=== PATIENT | female | born 1995 | race Native Hawaiian/Other Pacific Islander ===

== ENCOUNTER 2020-01-04 21:26 | Emergency (ER) | payer SELFPAY ==
[2020-01-04 23:10] LABS: Basophils # (Auto) 0.1 K/mm3 (0.0-0.1); Eosinophils # (Auto) 0.6 K/mm3 (0.0-0.4); Eosinophils % (Auto) 8.1 % (0.0-4.3); Hematocrit 40.5 % (30.3-42.9); Hemoglobin 13.3 gm/dl (10.1-14.3); Lymphocytes # (Auto) 2.9 K/mm3 (1.2-5.4); Lymphocytes % (Auto) 37.4 % (13.4-35.0); Mean Corpuscular HGB Conc 33 % (30-34); Mean Corpuscular Volume 85 fl (79-97); Monocytes # (Auto) 0.5 K/mm3 (0.0-0.8); Monocytes % (Auto) 7.1 % (0.0-7.3); Platelet Count 296 K/mm3 (140-440); Red Blood Count 4.75 M/mm3 (3.65-5.03); Red Cell Distribution Width 14.3 % (13.2-15.2)
[2020-01-05] MEDS ORDERED: ACETAMINOPHEN 500 MG TAB PO ONE (01:43)
--- NOTE | 2020-01-05 03:41 | Ultrasound Report ---
ULTRASOUND OBSTETRIC INDICATION / CLINICAL INFORMATION: Bleeding, pain. TECHNIQUE: Transabdominal. COMPARISON: None available. FINDINGS: GESTATIONAL SAC: Well-defined oval shape and intrauterine in location. 6 weeks 2 days YOLK SAC: Not identified EMBRYO/FETUS: No significant abnormality. - [place]-Rump - Heart Rate, beats per minute (if present) not identified ADNEXA: No significant abnormality. FREE FLUID: None. ADDITIONAL FINDINGS: None. IMPRESSION: 1. Small gestational sac without definite evidence of a crown-rump or heart motion, recommend c linical correlation Signer Name: Bonifacio Doshi MD Signed: 01/05/2020 3:37 AM Workstation Name: [id number]
--- NOTE | 2020-01-05 04:56 | Emergency Department Report ---
ED Female HPI - General Chief complaint: Vaginal Bleeding Stated complaint: 4WKS PEG,BACK PAIN,SPOTTING Source: patient Mode of arrival: Ambulatory Limitations: No Limitations - History of Present Illness Initial comments: Patient is a A0 24-year-old female who is approximately 4 or 5 weeks gestation and who presents to the ED with complaint of acute onset persi stent pelvic pain with vaginal bleeding for the last 2 days, worse in the last 12 hours. Patient denies vaginal discharge, dysuria, urinary frequency and urgency, fever, chills, nausea, vomiting, diarrhea, low back pain, dizziness, syncope, chest pain or shortness of breath. MD Complaint: vaginal bleeding, pelvic pain -: Sudden, days(s) (2) Severity: moderate Severity scale (0 -10): 5 Quality: cramping, sharp Consistency: intermittent Improves with: none Worsens with: none Are you Now?: Yes Associated Symptoms: denies other symptoms, vaginal bleeding, abdominal pain, hematuria. denies: vaginal discharge, nausea/vomiting, fever/chills, headaches, loss of appetite, dysuria, rash, shortness of breath, syncope, other - Related Data Sexually active: Yes : 3 Para: 2 A: 0 Previous Rx's Medication Instructions Recorded Last Taken Type Acetaminophen [Tylenol] 500 mg PO Q6HR PRN #30 tablet 01/05/20 Unknown Rx Allergies Allergy/AdvReac Type Severity Reaction Status Date / Time No Known Allergies Allergy Verified 07/01/15 13:44 ED Review of Systems ROS: Stated complaint: 4WKS PEG,BACK PAIN,SPOTTING Other details as noted in HPI Constitutional: denies: chills, fever Eyes: denies: eye pain, eye discharge, vision change ENT: denies: ear pain, throat pain Respiratory: denies: cough, shortness of breath, wheezing Cardiovascular: denies: chest pain, palpitations Endocrine: no symptoms reported Gastrointestinal: abdominal pain (Suprapubic pain). denies: nausea, diarrhea Genitourinary: abnormal menses (Vaginal bleeding). denies: urgency, dysuria, discharge Musculoskeletal: denies: back pain, joint swelling, arthralgia Skin: denies: rash, lesions Neurological: denies: headache, weakness, paresthesias Psychiatric: denies: anxiety, depression Hematological/Lymphatic: denies: easy bleeding, easy bruising ED Past Medical Hx - Past Medical History Previous Medical History?: Yes Hx Hypertension: No Hx Congestive Heart Failure: No Hx Diabetes: No Hx Deep Vein Thrombosis: No Hx Renal Disease: No Hx Sickle Cell Disease: No Hx Seizures: No Hx Asthma: Yes Hx COPD: No Hx HIV: No - Surgical History Past Surgical History?: Yes - Social History Smoking Status: Current Some Day Smoker - Medications Home Medications: Home Medications Medication Instructions Recorded Confirmed Last Taken Type Acetaminophen [Tylenol] 500 mg PO Q6HR PRN #30 tablet 01/05/20 Unknown Rx ED Physical Exam - General Limitations: No Limitations General appearance: alert, in no apparent distress - Head Head exam: Present: atraumatic, normocephalic, normal inspection - Eye Eye exam: Present: normal appearance, PERRL, EOMI Pupils: Present: normal accommodation - ENT ENT exam: Present: normal exam, normal orophraynx, mucous membranes moist, TM's normal bilaterally, normal external ear exam - Neck Neck exam: Present: normal inspection, full ROM - Respiratory Respiratory exam: Present: normal lung sounds bilaterally. Absent: respiratory distress, wheezes, rhonchi, accessory muscle use, decreased breath sounds - Cardiovascular Cardiovascular Exam: Present: regular rate, normal rhythm, normal heart sounds. Absent: systolic murmur, diastolic murmur, rubs, gallop - GI/Abdominal GI/Abdominal exam: Present: soft, tenderness (Mild suprapubic tenderness), normal bowel sounds. Absent: guarding, rebound, hyperactive bowel sounds, hypoactive bowel sounds - Bi-manual exam: Present: other (Pelvic exam deferred, patient charged) - Extremities Exam Extremities exam: Present: normal inspection, full ROM, normal capillary refill - Back Exam Back exam: Present: normal inspection, full ROM. Absent: tenderness, CVA tenderness (R), CVA tenderness (L), muscle spasm, paraspinal tenderness - Neurological Exam Neurological exam: Present: alert, oriented X3, CN II-XII intact, normal gait, reflexes normal - Psychiatric Psychiatric exam: Present: normal affect, normal mood - Skin Skin exam: Present: warm, dry, intact, normal color. Absent: rash ED Course Vital Signs 01/04/20 01/04/20 22:04 22:22 Temperature 98.4 F 98.4 F Pulse Rate 71 65 Respiratory 18 18 Rate Blood Pressure 106/54 106/54 O2 Sat by Pulse 98 99 Oximetry ED Medical Decision Making - Lab Data Result diagrams: 01/04/20 22:41 - Radiology Data Radiology results: report reviewed, image reviewed Findings [facility] [address] [place] [address] Ultrasound Report Signed Patient: WESLEY JUNG MR# : [id number] : 1995 Acct:[id number] Age/Sex: 24 / F ADM Date: 01/04/20 Loc: ED Attending Dr: Ordering Physician: BOB MAYS Date of Service: 01/05/20 Procedure(s): US OB <= 14 weeks fetus Accession Number(s): [id number] cc: BOB MAYS ULTRASOUND OBSTETRIC INDICATION / CLINICAL INFORMATION: Bleeding, pain. TECHNIQUE: Transabdominal. COMPARISON: None available. FINDINGS: GESTATIONAL SAC: Well-defined oval shape and intrauterine in location. 6 weeks 2 days YOLK SAC: Not identified EMBRYO/FETUS: No significant abnormality. - [place] - Heart Rate, beats per minute (if present) not identified ADNEXA: No significant abnormality. FREE FLUID: None. ADDITIONAL FINDINGS: None. IMPRESSION: 1. Small gestational sac without definite evidence of a crown-rump or heart motion, recommend clinical correlation Signer Name: Bonifacio Doshi MD Signed: 01/05/2020 3:37 AM Workstation Name: [id number] Transcribed By: YOSSI Dictated By: Bonifacio Doshi MD Electronically Authenticated By: Bonifacio Doshi MD Signed Date/Time: 01/05/20336 DD/ 4 TD/TT: - Medical Decision Making This is a A0 24-year-old female who is approximately 4 weeks gestation and who presented to the ED with acute onset persistent pelvic pain with vaginal bleeding for the last 2 days worse in the last 8 hours. In the ED, patient is alert and oriented x3 and is not in distress. Patient was treated for pain in the ED. The lab test results [place] [address]. The rest of the lab test results are unremarkable. Transvaginal ultrasound showed a small gestational sac without definite evidence of a crown- rump or heart motion, recommend clinical correlation. Patient was advised to maintain a complete pelvic rest and to return to the ED in 2 days for serial hCG quant repeat to ascertain the viability of the , or follow-up with your [employer]LE[employer] SUPERVISOR physician in 2 days for reevaluation. Patient was advised to return to the ED immediately if symptoms get worse. - Differential Diagnosis Threatened miscarriage; Ovarian cyst; Subchorionic bleed; UTI Critical care attestation.: If time is entered above; I have spent that time in minutes in the direct care of this critically ill patient, excluding procedure time. ED Disposition Clinical Impression: Threatened miscarriage Abdominal pain in Qualifiers: Trimester: first trimester Qualified Code(s): O26.891 - Other specified related conditions, first trimester Disposition: TO HOME OR SELFCARE Is pt being admited?: No Does the pt Need Aspirin: No Condition: Stable Instructions: Threatened Miscarriage (ED), Abdominal Pain in (ED) Additional Instructions: Mantenga un descanso plvico completo, tome Tylenol segn sea necesario para el dolor. Sarah un seguimiento con styles mdico obstetra / gineclogo en 2 a 3 patel para la reevaluacin o regrese al servicio de urgencias en 2 patel para que la cantidad de hCG se repita para determinar la viabilidad del embarazo. De lo contrario, regrese al servicio de urgencias de inmediato si los sntomas empeoran. Prescriptions: Acetaminophen [Tylenol] 500 mg PO Q6HR PRN #30 tablet PRN Reason: Pain , Severe (7-10) Referrals: DULCE VALDERRAMA MD [Staff Physician] - 2-3 Days Time of Disposition: 05:00 Print Language: LATVIAN
[2020-01-05 05:18] LABS: Bilirubin,Urine NEG (Negative); Blood,Urine LG (Negative); Color,Urine Yellow (Yellow); Mucus,Urine FEW /HPF; Protein,Urine <15 mg/dL mg/dL (Negative); Urobilinogen,Urine < 2.0 mg/dL (<2.0)
[2020-01-05 05:42] VITALS: BP 118/72
== END 2020-01-05 05:43 | disposition home or self-care (01) ==
LOC: ED 21:26
DX: O20.0 Threatened abortion (principal); O26.891 Other specified pregnancy related conditions, first trimester; R10.9 Unspecified abdominal pain; F17.200 Nicotine dependence, unspecified, uncomplicated; Z79.899 Other long term (current) drug therapy; Z3A.01 Less than 8 weeks gestation of pregnancy
CPT/HCPCS: 36415; 76801; 81001; 84702; 84703; 85025; 86900; 86901

== ENCOUNTER 2021-05-07 16:28 | Inpatient (IN) | payer OTHER ==
[2021-05-07] MEDS ORDERED: miSOPROStol 200 MCG TAB PR PRN (18:03)
[2021-05-07] MEDS ORDERED: CARBOPROST TROMETHAMINE 250 MCG/1 ML INJ IM PRN (18:03)
[2021-05-07] MEDS ORDERED: MINERAL OIL 30 ML ORAL LIQD PO PRN (18:03)
[2021-05-07] MEDS ORDERED: TERBUTALINE 1 MG/1 ML INJ SUB-Q PRN (18:03)
[2021-05-07] MEDS ORDERED: ePHEDrine SULFATE 50 MG/1 ML INJ IV PRN (18:03)
[2021-05-07] MEDS ORDERED: LOPERAMIDE 2 MG CAP PO PRN (18:03)
[2021-05-07] MEDS ORDERED: ACETAMINOPHEN 325 MG TAB PO PRN (18:03)
[2021-05-07] MEDS ORDERED: LIDOCAINE (2%) 20 MG/1 ML VIAL 20 ML MDV INFILTRATI ONE (18:03)
[2021-05-07] MEDS ORDERED: BUTORPHANOL 2 MG/1 ML INJ IV PRN (18:03)
[2021-05-07] MEDS ORDERED: OXYTOCIN 10 UNIT/1 ML INJ IM PRN (18:03)
[2021-05-07] MEDS ORDERED: METHYLERGONOVINE MALEATE 0.2 MG/ML VIAL IM PRN (18:03)
[2021-05-07] MEDS ORDERED: LACTATED RINGERS 1,000 ML IV SCH (18:15)
--- NOTE | 2021-05-07 18:40 | History and Physical Report ---
History of Present Illness Date of examination: 05/07/21 Date of admission: 05/07/21 18:13 Chief complaint: Contractions History of present illness: 25 year old female presents with contractions. LMP 08/01/2020. EDC 05/08/2021. Patient received care at [facility] and partial records are available. Patient denies any complications during this . History of 2 previous vaginal births and one miscarriage. labs are as follows: O+, antibody screen negative, rubella immune, hepatitis B surface antigen negative, RPR nonreactive, HIV negative, hemoglobin electrophoresis AA, gonorrhea negative, chlamydia negative, trichomonas negative, varicella immune, AFP negative, 1 hour sugar test 70, GBS negative. Past History Past Medical History: asthma Past Surgical History: no surgical history HAND LACER History: denies: abnormal PAP smear, chlamydia, gonorrhea, hepatitis B, hepatitis C, herpes, HIV, syphilis, trichomonas Family/Genetic History: other (asthma) Social history: lives with family, full code. denies: smoking (previous smoker), alcohol abuse, IV drug use - Obstetrical History Expected Date of Delivery: 05/08/21 Actual Gestation: 39 Week(s) 6 Day(s) : 4 Para: 2 Hx # Term Pregnancies: 2 Number of Pregnancies: 0 Spontaneous Abortions: 1 Induced : 0 Number of Living Children: 2 Medications and Allergies Allergies Allergy/AdvReac Type Severity Reaction Status Date / Time No Known Allergies Allergy Verified 05/07/21 18:27 Home Medications Medication Instructions Recorded Confirmed Last Taken Type No Known Home Medications [No 05/07/21 05/07/21 Unknown History Reported Home Medications] Active Meds: Active Medications Acetaminophen (Acetaminophen 325 Mg Tab) 650 mg PO Q4H PRN PRN Reason: Pain, Mild (1-3) Butorphanol Tartrate (Butorphanol 2 Mg/1 Ml Inj) 1 mg IV Q2H PRN PRN Reason: Pain, Moderate(4-6) LABOR PAIN Carboprost Tromethamine (Carboprost Tromethamine 250 Mcg/1 Ml Inj) 250 mcg IM ONCE PRN PRN Reason: Uterine Bleeding Ephedrine Sulfate (Ephedrine Sulfate 50 Mg/1 Ml Inj) 10 mg IV Q2M PRN PRN Reason: Hypotension Fentanyl (Fentanyl 100 Mcg/2 Ml Inj) 100 mcg IV Q2H PRN PRN Reason: Pain,Severe (7-10) LABOR PAIN Lactated Ringer's (Lactated Ringers) 1,000 mls @ 125 mls/hr IV DIRECT BECCA Oxytocin/Sodium Chloride (Pitocin/Ns 30 Unit/500ml) 30 units in 500 mls @ 40 mls/hr IV TITR BECCA; Protocol Loperamide HCl (Loperamide 2 Mg Cap) 2 mg PO ONCE PRN PRN Reason: give with Hemabate Methylergonovine Maleate (Methylergonovine Maleate 0.2 Mg/Ml Vial) 0.2 mg IM ONCE PRN PRN Reason: Uterine Bleeding Mineral Oil (Mineral Oil 30 Ml Oral Liqd) 30 ml PO QHS PRN PRN Reason: Constipation Misoprostol (Misoprostol 200 Mcg Tab) 800 mcg DE ONCE PRN PRN Reason: Uterine Bleeding Oxytocin (Oxytocin 10 Unit/1 Ml Inj) 10 unit IM ONCE PRN PRN Reason: Uterine Bleeding Terbutaline Sulfate (Terbutaline 1 Mg/1 Ml Inj) 0.25 mg SUB-Q ONCE PRN PRN Reason: Hyperstimulation/Hypertonicity Review of Systems All systems: negative (contractions) - Vital Signs Vital signs: Vital Signs Pulse BP Pulse Ox 74 115/67 99 05/07/21 16:50 05/07/21 16:50 05/07/21 16:50 Temp Pulse Resp BP Pulse Ox 97.9 F 56 L 18 114/77 100 05/07/21 18:27 05/07/21 18:27 05/07/21 18:27 05/07/21 18:27 05/07/21 18:15 - Physical Exam Abdomen: Positive: normal appearance, soft. Negative: distention, tenderness, guarding, rigidity Genitourinary (Female): Positive: normal external genitalia, normal perenium. Negative: perineal/vulvar lesions Vagina: Positive: normal moisture Uterus: Positive: enlarged. Negative: tender Extremities: Positive: normal. Negative: tenderness, edema - Obstetrical FHR: category 1 Uterine Contraction Monitor Mode: External Cervical Dilatation: 5.5 Cervical Effacement Percentage: 80 station: -1 Uterine Contraction Pattern: Regular Uterine Contraction Intensity: Moderate Results Result Diagrams: 05/07/21 18:35 All other labs normal. Assessment and Plan A: at 39 weeks, 6 days gestation. Active labor. GBS negative. P: Admit. EFM. Anticipate .
[2021-05-07 18:51] LABS: Hematocrit 33.7 % (30.3-42.9); Hemoglobin 11.3 gm/dl (10.1-14.3); Mean Corpuscular HGB Conc 34 % (30-34); Mean Corpuscular Volume 83 fl (79-97); Platelet Count 261 K/mm3 (140-440); Red Blood Count 4.08 M/mm3 (3.65-5.03); Red Cell Distribution Width 14.7 % (13.2-15.2)
[2021-05-07] MEDS ORDERED: OXYTOCIN DRIP 30 UNITS/500 ML BAG IV SCH (19:00)
[2021-05-07] MEDS: fentaNYL 100 MCG/2 ML INJ IV PRN ×2 (20:55→22:53)
--- NOTE | 2021-05-07 22:57 | Event Note ---
Date: 05/07/21 SVE /-1.
[2021-05-08] MEDS ORDERED: ONDANSETRON 4 MG/2 ML INJ IV PRN (02:48)
[2021-05-08] MEDS ORDERED: WITCH HAZEL/ GLYCERIN PAD TP PRN (02:48)
[2021-05-08] MEDS ORDERED: MAGNESIUM HYDROXIDE (MOM) ORAL LIQD UDC PO PRN (02:48)
[2021-05-08] MEDS ORDERED: LANOLIN/ZINC/DIMETHICONE (LANSINOH) 7 GM TP PRN (02:48)
[2021-05-08] MEDS ORDERED: ACETAMINOPHEN 325 MG TAB PO PRN (02:48)
--- NOTE | 2021-05-08 03:04 | Procedure Note ---
OB Delivery Note - Delivery Date of Delivery: 05/08/21 Surgeon: TRISTAN RAJPUT Estimated blood loss: 300cc - Vaginal Delivery presentation: vertex Delivery position: OP Intrapartum events: other(please specify) (Variable FHR decelerations) Delivery induction: none Delivery augmentation: rupture of membranes Delivery monitor: external FHT, external uterine Route of delivery: Delivery placenta: spontaneous Delivery cord: 3 umbilical vessels Episiotomy: none Delivery laceration: none Delivery repair: vicryl Anesthesia: none Delivery comments: Spontaneous vaginal delivery at 01:48 of liveborn female weighing 7 lb. 8 oz. over intact perineum with apgars of 8/9. was atraumatic. Baby was placed skin to skin with mom immediately after delivery. Spontaneous cry and respirations. 3 vessel cord double clamped and cut; baby taken to radiant warmer for further suctioning. Spontaneous delivery of intact placenta and membranes by cain mechanism. EBL 300 cc. Pitocin to IV fluids after delivery of placenta. Fundus firm and midline. No lacerations noted. Vaginal sweep negative. Sponge co unt correct. Mother and baby stable.
[2021-05-08] MEDS: HYDROcodone/ACETAMINOPHEN 5-325 MG TAB PO PRN ×3 (03:10→21:08)
[2021-05-08] MEDS: IBUPROFEN 600 MG TAB PO SCH ×4 (05:14→23:43)
[2021-05-08] MEDS: DOCUSATE SODIUM 100 MG CAP PO SCH ×2 (09:44→21:11)
[2021-05-08 15:22] LABS: Hematocrit 31.2 % (30.3-42.9); Hemoglobin 9.9 gm/dl (10.1-14.3)
[2021-05-09] MEDS: IBUPROFEN 600 MG TAB PO SCH ×4 (05:21→22:47)
[2021-05-09] MEDS: DOCUSATE SODIUM 100 MG CAP PO SCH ×2 (10:22→22:49)
[2021-05-09] MEDS: FERROUS SULFATE 325 MG TAB PO SCH ×2 (10:22→22:47)
--- NOTE | 2021-05-09 11:26 | Progress Note ---
Assessment and Plan A: day 1 S/P . Anemia. P: Supplement with iron. Anticipate discharge home tomorrow if patient continues to do well. Subjective - Subjective Date of service: 05/09/21 Principal diagnosis: day 1 S/P Patient reports: appetite normal, voiding normally, pain well controlled, flatus, ambulating normally, no dizzy ambulation, no nauseated Advance: doing well Objective - Vital Signs Latest vital signs: Vital Signs Temp Pulse Resp BP BP Pulse Ox 05/09/21 08:33 97.8 F 58 L 17 90/43 96 05/09/21 06:21 18 05/09/21 05:21 18 05/09/21 00:43 18 05/09/21 00:30 98.6 F 78 16 102/72 05/08/21 23:43 18 05/08/21 22:08 18 05/08/21 21:08 18 05/08/21 20:31 98.0 F 71 18 125/66 97 05/08/21 15:10 97.9 F 64 17 106/70 99 Intake and Output 05/08/21 05/09/21 05/09/21 23:59 07:59 15:59 Intake Total 300 560 Output Total 900 Balance -600 560 Intake: Oral 200 Intake, Free Water 300 360 Output: Urine 900 Void 900 Other: Total, Intake Amount 200 Total, Output Amount 900 # Voids Void 2 - Exam Cardiovascular: Present: Regular rate Lungs: Present: Clear to auscultation Abdomen: Present: normal appearance, soft. Absent: distention, tenderness, guarding, rigidity Uterus: Present: normal, firm, fundal height below umbilicus. Absent: bogginess, tenderness Extremities: Present: normal. Absent: tenderness - Labs Labs: Abnormal lab results 05/08/21 Range/Units 14:51 Hgb 9.9 L (10.1-14.3) gm/dl
[2021-05-10] MEDS: IBUPROFEN 600 MG TAB PO SCH (06:15)
--- NOTE | 2021-05-10 06:42 | Progress Note ---
Assessment and Plan A: day 2 S/P . Anemia. P: Discharge patient home today. Discussed with patient discharge instructions and warning signs. Advised patient to continue taking her vitamins and iron supplements at home. Advised patient to avoid intercourse, lifting, heavy housework. Advised patient to follow up at [facility] in 6 weeks. Patient voiced understanding of instructions. Subjective - Subjective Date of service: 05/10/21 Principal diagnosis: day 2 S/P Patient reports: appetite normal, voiding normally, pain well controlled, flatus, ambulating normally, no dizzy ambulation, no nauseated [place]: doing well Objective - Vital Signs Latest vital signs: Vital Signs Temp Pulse Resp BP BP Pulse Ox 05/10/21 01:12 98.0 F 62 18 112/56 99 05/09/21 17:14 97.7 F 20 104/73 05/09/21 17:11 75 99 05/09/21 08:33 97.8 F 58 L 17 90/43 96 Intake and Output 05/09/21 05/09/21 05/10/21 15:59 23:59 07:59 Intake Total 360 240 Balance 360 240 Intake: Oral 360 240 Other: Total, Intake Amount 120 240 # Voids Void 1 1 - Exam Cardiovascular: Present: Regular rate Lungs: Present: Clear to auscultation Abdomen: Present: normal appearance, soft. Absent: distention, tenderness, guarding, rigidity Uterus: Present: normal, firm, fundal height below umbilicus. Absent: bogginess, tenderness Extremities: Absent: tenderness, edema
--- NOTE | 2021-05-10 06:46 | Discharge Summary ---
Providers - Providers Date of Admission: 05/07/21 18:13 Date of discharge: 05/10/21 Attending physician: ALESHIA SMALLWOOD MD Primary care physician: ALESHIA SMALLWOOD MD Hospitalization Reason for admission: active labor Delivery: Episiotomy: none Laceration: none Other procedures: none complications: none Discharge diagnosis: IUP at term delivered baby: female Pertinent studies: Labs Hospital course: Stable hospital course. Condition at discharge: Good Disposition: DC-01 TO HOME OR SELFCARE - Discharge Diagnoses (1) Anemia Status: Acute Plan - Provider Discharge Summary Activity: routine, no sex for 6 weeks, no heavy lifting 4 weeks, no strenuous exercise Diet: routine Instructions: routine Additional instructions: Continue taking your iron supplements and vitamins at home. Follow up at [facility] office in 6 weeks. Call your doctor immediately for: * Fever > 100.5 * Heavy vaginal bleeding ( >1 pad per hour) * Severe persistent headache * Shortness of breath * Reddened, hot, painful area to leg or breast - Follow up plan Follow up: ALESHIA SMALLWOOD MD [Primary Care Provider] - 6 Weeks
[2021-05-10 11:39] VITALS: BP 124/71
== END 2021-05-10 12:25 | disposition home or self-care (01) | DRG 775 ==
LOC: TRG 16:28 → APU 16:30 → TRG 18:12 → APU 18:13 → LD 18:14 → OB 05-08 04:05
PROVIDERS: ADMIT Obstetrics & Gynecology; ATTEND Obstetrics & Gynecology
PROC: 10E0XZZ Delivery of Products of Conception, External Approach (ICD-10-PCS; principal; 2021-05-08)
DX: O76 Abnormality in fetal heart rate and rhythm complicating labor and delivery (principal); O99.52 Diseases of the respiratory system complicating childbirth; D64.9 Anemia, unspecified; Z20.822 Contact with and (suspected) exposure to COVID-19; J45.909 Unspecified asthma, uncomplicated; Z3A.39 39 weeks gestation of pregnancy; Z37.0 Single live birth
CPT/HCPCS: 36415; 85014; 85018; 85027; 86592; 86850; 86900; 86901; G0378; J2590; J3010; J7120; U0003

== ENCOUNTER 2021-08-12 14:15 | Emergency (ER) | payer OTHER ==
--- NOTE | 2021-08-12 15:09 | Event Note ---
ED Screening Note Date of service: 08/12/21 Time: 15:05 ED Screening Note: Patient complains of shortness of breath, chest pain, and all over body aches since Monday Denies control This initial assessment/diagnostic orders/clinical plan/treatment(s) is/are subject to change based on patients health status, clinical progression and re- assessment by fellow clinical providers in the ED. Further treatment and workup at subsequent clinical providers discretion. Patient/guardian urged not to elope from the ED as their condition may be serious if not clinically assessed and managed. Initial orders include: Labs Chest x-ray EKG
[2021-08-12 16:08] LABS: Alanine Aminotransferase 41 units/L (7-56); Albumin 4.7 g/dL (3.9-5); Blood Urea Nitrogen 8 mg/dL (7-17); Hemolysis Index 2
[2021-08-12 16:09] LABS: Basophils % (Auto) 0.4 % (0.0-1.8); Eosinophils # (Auto) 0.1 K/mm3 (0.0-0.4); Eosinophils % (Auto) 1.3 % (0.0-4.3); Hematocrit 36.5 % (30.3-42.9); Hemoglobin 11.8 gm/dl (10.1-14.3); Lymphocytes # (Auto) 1.2 K/mm3 (1.2-5.4); Lymphocytes % (Auto) 27.2 % (13.4-35.0); Mean Corpuscular HGB Conc 32 % (30-34); Mean Corpuscular Volume 80 fl (79-97); Monocytes # (Auto) 0.5 K/mm3 (0.0-0.8); Monocytes % (Auto) 10.2 % (0.0-7.3); Platelet Count 232 K/mm3 (140-440); Red Blood Count 4.54 M/mm3 (3.65-5.03); Red Cell Distribution Width 14.4 % (13.2-15.2)
[2021-08-12 16:11] LABS: BUN/Creatinine Ratio 13
[2021-08-12] MEDS ORDERED: SODIUM CHLORIDE 0.9% 1000 ML 1,000 ML IV ONE (17:31)
[2021-08-12] MEDS ORDERED: KETOROLAC 60 MG/2 ML INJ IM ONE (17:31)
--- NOTE | 2021-08-12 17:33 | XRay Report ---
CHEST 1 VIEW 08/12/2021 4:58 PM INDICATION / CLINICAL INFORMATION: chest pain, SOB. COMPARISON: None available. FINDINGS: SUPPORT DEVICES: None. HEART / MEDIASTINUM: No significant abnormality. LUNGS / PLEURA: No significant pulmonary or pleural abnormality. No pneumothorax. ADDITIONAL FINDINGS: No significant additional findings. IMPRESSION: 1. No acute findings. Signer Name: Yeison Rivera MD Signed: 08/12/2021 5:28 PM Workstation Name: [id number]
--- NOTE | 2021-08-12 17:33 | Emergency Department Report ---
ED General Adult HPI - General Chief complaint: Dyspnea/Respdistress Stated complaint: LIGHT HEADED,SOB Time Seen by Provider: 08/12/21 16:45 Source: patient Mode of arrival: Wheelchair Limitations: Language Barrier - History of Present Illness Initial comments: The patient presents to the emergency department with a chief complaint of fever, chills, body aches and sweating that started Monday. Patient states now she has chest pain when taking deep breaths as well as numbness. Patient is not Danish-speaking thus metoprolol was used. Ms. Curtis provided interpretation. -: Gradual Radiation: non-radiation Severity scale (0 -10): 3 Quality: aching Consistency: constant Improves with: none Worsens with: none Associated Symptoms: denies other symptoms Treatments Prior to Arrival: none - Related Data Previous Rx's Medication Instructions Recorded Last Taken Type Ibuprofen [Motrin] 800 mg PO Q8HR PRN #30 tablet 08/12/21 Unknown Rx Allergies Allergy/AdvReac Type Severity Reaction Status Date / Time No Known Allergies Allergy Verified 08/12/21 14:22 ED Review of Systems ROS: Stated complaint: LIGHT HEADED,SOB Other details as noted in HPI Comment: All other systems reviewed and negative Constitutional: chills, fever, malaise Eyes: denies: eye pain, eye discharge, vision change ENT: denies: ear pain, throat pain Respiratory: cough, shortness of breath. denies: wheezing Cardiovascular: denies: chest pain, palpitations Endocrine: no symptoms reported Gastrointestinal: denies: abdominal pain, nausea, diarrhea Genitourinary: denies: urgency, dysuria, discharge Musculoskeletal: denies: back pain, joint swelling, arthralgia Skin: denies: rash, lesions Neurological: denies: headache, weakness, paresthesias Psychiatric: denies: anxiety, depression Hematological/Lymphatic: denies: easy bleeding, easy bruising ED Past Medical Hx - Past Medical History Hx Hypertension: No Hx Congestive Heart Failure: No Hx Diabetes: No Hx Deep Vein Thrombosis: No Hx Renal Disease: No Hx Sickle Cell Disease: No Hx Seizures: No Hx Asthma: Yes (NO ATTCKS IN [facility] LAST 2 YEARS.) Hx COPD: No Hx HIV: No - Social History Smoking Status: Never Smoker - Medications Home Medications: Home Medications Medication Instructions Recorded Confirmed Last Taken Type Ibuprofen [Motrin] 800 mg PO Q8HR PRN #30 tablet 08/12/21 Unknown Rx ED Physical Exam - General Limitations: Language Barrier General appearance: alert, in no apparent distress - Head Head exam: Present: atraumatic, normocephalic - Eye Eye exam: Present: normal appearance, PERRL, EOMI - ENT ENT exam: Present: mucous membranes moist - Neck Neck exam: Present: normal inspection - Respiratory Respiratory exam: Present: normal lung sounds bilaterally. Absent: respiratory distress - Cardiovascular Cardiovascular Exam: Present: normal rhythm, tachycardia. Absent: systolic murmur, diastolic murmur, rubs, gallop - GI/Abdominal GI/Abdominal exam: Present: soft, normal bowel sounds. Absent: distended, tenderness - Extremities Exam Extremities exam: Present: normal inspection - Back Exam Back exam: Present: normal inspection - Neurological Exam Neurological exam: Present: alert, oriented X3, CN II-XII intact. Absent: motor sensory deficit - Psychiatric Psychiatric exam: Present: normal affect, normal mood - Skin Skin exam: Present: warm, dry, intact, normal color. Absent: rash ED Course Vital Signs 08/12/21 08/12/21 08/12/21 14:30 15:37 15:46 Temperature 99.1 F Pulse Rate 69 84 78 Respiratory 24 28 H 10 L Rate Blood Pressure 117/81 113/64 Blood Pressure [Left] O2 Sat by Pulse 95 100 95 Oximetry 08/12/21 08/12/21 08/12/21 16:00 16:16 16:30 Temperature 98.7 F Pulse Rate 85 81 88 Respiratory 14 15 15 Rate Blood Pressure 118/73 118/73 112/72 Blood Pressure 112/72 [Left] O2 Sat by Pulse 98 98 99 Oximetry 08/12/21 08/12/21 08/12/21 16:46 17:00 17:16 Temperature Pulse Rate 87 85 81 Respiratory 16 18 14 Rate Blood Pressure 112/72 113/73 113/73 Blood Pressure [Left] O2 Sat by Pulse 98 99 98 Oximetry 08/12/21 08/12/21 08/12/21 17:30 17:46 18:01 Temperature Pulse Rate 86 87 98 H Respiratory 19 16 17 Rate Blood Pressure 113/73 105/64 Blood Pressure [Left] O2 Sat by Pulse 98 98 99 Oximetry 08/12/21 08/12/21 08/12/21 18:15 18:31 18:45 Temperature Pulse Rate 92 H 82 74 Respiratory 15 17 12 Rate Blood Pressure 105/64 108/62 114/60 Blood Pressure [Left] O2 Sat by Pulse 99 97 97 Oximetry 08/12/21 08/12/21 08/12/21 19:00 19:15 19:31 Temperature Pulse Rate 77 92 H 84 Respiratory 12 18 10 L Rate Blood Pressure 108/62 108/62 108/62 Blood Pressure [Left] O2 Sat by Pulse 98 99 98 Oximetry 08/12/21 08/12/21 08/12/21 19:45 20:01 20:15 Temperature Pulse Rate 79 79 84 Respiratory 14 13 14 Rate Blood Pressure 106/66 106/66 106/66 Blood Pressure [Left] O2 Sat by Pulse 98 98 98 Oximetry 08/12/21 08/12/21 08/12/21 20:31 20:45 21:01 Temperature Pulse Rate 71 68 84 Respiratory 14 12 15 Rate Blood Pressure 106/66 106/66 106/66 Blood Pressure [Left] O2 Sat by Pulse 100 100 100 Oximetry 08/12/21 08/12/21 21:15 21:29 Temperature 99.2 F Pulse Rate 74 Respiratory 12 Rate Blood Pressure 106/66 Blood Pressure [Left] O2 Sat by Pulse 98 Oximetry ED Medical Decision Making - Lab Data Result diagrams: 08/12/21 15:29 08/12/21 15:29 Lab Results 08/12/21 08/12/21 08/12/21 Range/Units 15:29 15:29 15:29 WBC 4.6 (4.5-11.0) K/mm3 RBC 4.54 (3.65-5.03) M/mm3 Hgb 11.8 (10.1-14.3) gm/dl Hct 36.5 (30.3-42.9) % MCV 80 (79-97) fl MCH 26 L (28-32) pg MCHC 32 (30-34) % RDW 14.4 (13.2-15.2) % Plt Count 232 (140-440) K/mm3 Lymph % (Auto) 27.2 (13.4-35.0) % [place]eman % (Auto) 10.2 H (0.0-7.3) % Eos % (Auto) 1.3 (0.0-4.3) % Baso % (Auto) 0.4 (0.0-1.8) % Lymph # (Auto) 1.2 (1.2-5.4) K/mm3 [place]eman # (Auto) 0.5 (0.0-0.8) K/mm3 Eos # (Auto) 0.1 (0.0-0.4) K/mm3 Baso # (Auto) 0.0 (0.0-0.1) K/mm3 Seg Neutrophils % 60.9 (40.0-70.0) % Seg Neutrophils # 2.8 (1.8-7.7) K/mm3 Sodium 138 (137-145) mmol/L Potassium 3.8 (3.6-5.0) mmol/L Chloride 102.4 (98-107) mmol/L Carbon Dioxide 21 L (22-30) mmol/L Anion Gap 18 mmol/L BUN 8 (7-17) mg/dL Creatinine 0.6 (0.6-1.2) mg/dL Estimated GFR > 60 ml/min BUN/Creatinine Ratio 13 % Glucose 93 (65-100) mg/dL Calcium 9.0 (8.4-10.2) mg/dL Total Bilirubin 0.20 (0.1-1.2) mg/dL AST 51 H (5-40) units/L ALT 41 (7-56) units/L Alkaline Phosphatase 60 (35-129) units/L Total Protein 7.9 (6.3-8.2) g/dL Albumin 4.7 (3.9-5) g/dL Albumin/Globulin Ratio 1.5 % HCG, Qual Negative (Negative) Influenza A (Rapid) (Negative) Influenza B (Rapid) (Negative) 08/12/21 Range/Units Unknown WBC (4.5-11.0) K/mm3 RBC (3.65-5.03) M/mm3 Hgb (10.1-14.3) gm/dl Hct (30.3-42.9) % MCV (79-97) fl MCH (28-32) pg MCHC (30-34) % RDW (13.2-15.2) % Plt Count (140-440) K/mm3 Lymph % (Auto) (13.4-35.0) % [place] % (Auto) (0.0-7.3) % Eos % (Auto) (0.0-4.3) % Baso % (Auto) (0.0-1.8) % Lymph # (Auto) (1.2-5.4) K/mm3 [place]eman # (Auto) (0.0-0.8) K/mm3 Eos # (Auto) (0.0-0.4) K/mm3 Baso # (Auto) (0.0-0.1) K/mm3 Seg Neutrophils % (40.0-70.0) % Seg Neutrophils # (1.8-7.7) K/mm3 Sodium (137-145) mmol/L Potassium (3.6-5.0) mmol/L Chloride (98-107) mmol/L Carbon Dioxide (22-30) mmol/L Anion Gap mmol/L BUN (7-17) mg/dL Creatinine (0.6-1.2) mg/dL Estimated GFR ml/min BUN/Creatinine Ratio % Glucose (65-100) mg/dL Calcium (8.4-10.2) mg/dL Total Bilirubin (0.1-1.2) mg/dL AST (5-40) units/L ALT (7-56) units/L Alkaline Phosphatase (35-129) units/L Total Protein (6.3-8.2) g/dL Albumin (3.9-5) g/dL Albumin/Globulin Ratio % HCG, Qual (Negative) Influenza A (Rapid) Negative (Negative) Influenza B (Rapid) Negative (Negative) - Radiology Data Radiology results: report reviewed - Medical Decision Making Discussed results with patient via clay temperer Instructed the patient the importance of getting tested for Covid Critical care attestation.: If time is entered above; I have spent that time in minutes in the direct care of this critically ill patient, excluding procedure time. ED Disposition Clinical Impression: Myalgia, Fever Disposition: 01 HOME / SELF CARE / HOMELESS Is pt being admited?: No Does the pt Need Aspirin: No Condition: Stable Instructions: Fever, Adult Additional Instructions: Return if worse Referrals: PRIMARY CARE, [Primary Care Provider] - 3-5 Days LUCAS JOHNSTON MD [Staff Physician] - 3-5 Days Time of Disposition: 22:22
--- NOTE | 2021-08-12 19:31 | Cat Scan Report ---
CT angio chest INDICATION / CLINICAL INFORMATION: chest pain/tachycardic/sob. TECHNIQUE: Axial CT images were obtained through the chest after injection of IV contrast. 3 plane MIP and/or 3D reconstructions were produced. All CT scans at this location are performed using CT dose reduction f or ALARA by means of automated exposure control. COMPARISON: X-ray chest same day FINDINGS: PULMONARY ARTERIES: No pulmonary emboli. HEART: No significant abnormality. MEDIASTINUM / SEBASTIAN: No significant abnormality. LUNGS: Lungs are clear No pleural effusion. No pneumothorax. ADDITIONAL FINDINGS: None. UPPER ABDOMEN: No acute findings. SKELETAL STRUCTURES: No significant osseous abnormality. IMPRESSION: 1. No CT evidence for pulmonary embolism. 2. No acute findings. Signer Name: Matthew George MD Signed: 08/12/2021 7:26 PM Workstation Name: [id number]
[2021-08-12 20:06] VITALS: BP 106/66
--- NOTE | 2021-08-13 09:18 | Electrocardiograph Report ---
[facility] Test Date: 2021-08-12 Test Time: 15:23:56 Pat Name: WESLEY JUNG Department: Room: Gender: F [address] Engineer: MARION : 1995 Requested By: KENDRA ALCANTAR Order Number: [id number] Reading MD: Wilson Cordova Measurements Intervals [place] Rate: 78 P: 41 GA: 124 QRS: 69 QRSD: 75 T: 23 QT: 353 QTc: 403 Interpretive Statements Sinus arrhythmia No previous ECG available for comparison Electronically Signed On 08-13-2021 9:18:02 EDT by Wilson Cordova
== END 2021-08-12 22:37 | disposition home or self-care (01) ==
LOC: ED 14:15
DX: M79.10 Myalgia, unspecified site (principal); R50.9 Fever, unspecified
CPT/HCPCS: 36415; 71045; 71275; 80053; 84703; 85025; 87400; 93005; 96360; 96372; 99284; J1885; J7030; Q9967